=== PATIENT | female | born 2000 | race African-American/Black ===

== ENCOUNTER 2019-01-06 09:04 | Inpatient (IN) ==
[2019-01-06 10:42] LABS: URINE SOURCE VOIDED
[2019-01-06 10:58] LABS: BILIRUBIN URINE NEGATIVE (NEGATIVE); BLOOD URINE LARGE (NEGATIVE); CLARITY CLEAR (CLEAR); COLOR YELLOW; GLUCOSE URINE NEGATIVE (NEGATIVE); KETONE URINE NEGATIVE (NEGATIVE); LEUKOCYTES URINE NEGATIVE (NEGATIVE); NITRITE URINE NEGATIVE (NEGATIVE); PROTEIN URINE NEGATIVE (NEGATIVE); SP GRAVITY URINE 1.015; UROBILINOGEN URINE 0.2 EU/dL (0.2-1.0)
[2019-01-06 11:20] LABS: UR AMPHETAMINES MT NONE DETECTED (NONE DETECT); UR BARBITUATES MT NONE DETECTED (NONE DETECT); UR BENZODIAZ MT NONE DETECTED (NONE DETECT); UR CANNABIS MEDTOX NONE DETECTED (NONE DETECT); UR COCAINE MT NONE DETECTED (NONE DETECT); UR METHADONE MEDTOX NONE DETECTED (NONE DETECT); UR OPIATES MT NONE DETECTED (NONE DETECT); UR OXYCODONE MEDTOX NONE DETECTED (NONE DETECT); UR PCP MEDTOX NONE DETECTED (NONE DETECT)
[2019-01-06] MEDS ORDERED: PEPCID PO ONE (17:28)
[2019-01-06] MEDS ORDERED: PEPCID PO PRN (17:28)
[2019-01-06] MEDS ORDERED: TYLENOL PO PRN (17:28)
[2019-01-06] MEDS ORDERED: ZOFRAN IV PRN (17:28)
[2019-01-06] MEDS ORDERED: KEFZOL 1 GM/D5W 1 GM/50 ML IVPB IV PRN (17:28)
[2019-01-06] MEDS ORDERED: PEPCID IV PRN (17:28)
[2019-01-06] MEDS ORDERED: REGLAN PO ONE (17:28)
[2019-01-06] MEDS ORDERED: PITOCIN 10 UNITS/NS 1,000 ML IV SCH (17:30)
[2019-01-06] MEDS ORDERED: SODIUM CHLORIDE 0.9% INJ SCH (17:30)
[2019-01-06 18:23] LABS: BASO# 0.02 X1000 (0.0-0.2); BASO% 0.2 % (0.0-0.8); EOS% 0.9 % (0.0-10.0); HEMATOCRIT 40.1 % (37.0-47.0); HEMOGLOBIN 13.4 g/dL (12.0-16.0); IMM GRAN# 0.03 X1000 (0.0-0.04); IMM GRAN% 0.3 % (0.0-0.5); LYMPH# 1.96 X1000 (1.2-3.4); MCH 31.5 PG (27-31); MCHC 33.4 g/dL (33-37); MCV 94.4 FL (81-99); MONO# 0.74 X1000 (0.11-0.59); MONO% 6.4 % (1.7-9.3); MPV 11.3 FL (7.4-10.4); NEUT# 8.69 X1000 (1.4-6.5); NEUT% 75.2 % (42.2-75.2); PLT 245 X1000 (130-400); RBC 4.25 XMIL (4.2-5.4); RDW 12.7 % (11.5-14.5); WBC 11.54 X1000 (4.8-10.8)
[2019-01-06 18:41] LABS: AGAP 14; ALB/GLOB RATIO 1.2; ALBUMIN 3.8 g/dL (3.5-5.0); ALKALINE PHOSPHATASE 204 U/L (32-104); BUN 5 mg/dL (8-22); CALCIUM 9.8 mg/dL (8.8-10.2); CHLORIDE 100 mmol/L (98-107); COSMO 270; CREATININE 0.5 mg/dL (0.5-0.9); ESTIMATED GFR > 60; GLUCOSE 85 mg/dL (70-104); GOT 19 U/L (10-30); GPT 11 U/L (10-36); SODIUM 137 mmol/L (136-145); TCO2 23 mmol/L (25-35); TOTAL BILIRUBIN 0.41 mg/dL (0.20-1.00); TOTAL PROTEIN 7.1 g/dL (6.3-8.3); URIC ACID 3.6 mg/dL (2.4-5.7)
[2019-01-06 18:46] LABS: RPR NON-REACTIVE (NONREACTIVE)
[2019-01-06 18:47] LABS: RUBELLA SCREEN NON IMMUNE (IMMUNE)
[2019-01-06] MEDS: LR 1,000 ML IV SCH ×2 (18:52→22:22)
[2019-01-06] MEDS: STADOL IV PRN ×2 (18:56→21:20)
[2019-01-06] MEDS ORDERED: PITOCIN 30 UNITS/NS 30 UNIT/500 ML IV.SOLN IV SCH (20:00)
[2019-01-06] MEDS ORDERED: NAROPIN 0.2% INJ ONE (20:30)
[2019-01-06] MEDS ORDERED: NAROPIN 0.2% ONE (20:45)
[2019-01-06] MEDS ORDERED: FENTANYL-BUPIV-NS 2 MCG-0.1% 250 ML EPIDURAL SCH (21:00)
[2019-01-06 21:04] LABS: PROTEIN CREAT RATIO 0.2; UR PROT RANDOM 20.4 mg/dL
--- NOTE | 2019-01-06 22:54 | HISTORY AND PHYSICAL ---
CHIEF COMPLAINT: Very early prodromal labor, gestational hypertension. HISTORY OF PRESENT ILLNESS: The patient is a 18-year-old G1, P0 female with EDC of 01/07/2019, confirmed with ultrasound, making her 39 weeks and 6 days gestation. She is from [place], and had start of her care here in [place] at 27 weeks and 2 days gestation. She presented to labor and delivery on 01/06/2019 at around 8:50 a.m., stating that she had contractions on and off since the day prior. She states that morning at 7 a.m. her contractions had become regular at about 5- minute intervals. She reported good movement. No leakage of fluid and had minimal spotting with wiping. heart tones were in the 140s, reactive and reassuring, and on tocometer kourtney approximately every 3 minutes with arrival. Upon check at first arrival roughly at 9 a.m., she was found to be 1, 80% and - 2. First blood pressure was 152/73, but this was taken during a contraction and with discomfort. She had no PIH symptoms. No headache. No nausea or vomiting.No right upper quadrant pain. No vision problems. The blood pressure during her monitoring was in the 110s to 130s over 70s to 80s. On recheck at 1:40 p.m., she was found to be 2, 80%, -2 and still posterior. Discussed with the patient and her mother minimal change and early labor in a primipara. The patient reported her contractions were still strong but spaced out to the 3 to 7-minute range. The patient and her mother were concerned regarding the possibility of labor and discussed options, including going home as minimal change and coming back when her contractions got stronger, or staying through another check. They decided to stay through another check. The patient's mother had left after the second check to go take care of things at the house. Next check performed at 3:51 p.m. She was found to be 2.5 at that time, 80% effaced, -2 station with now the cervix midposition instead of posterior. Still slow prodromal early labor in a primipara. With third check the patient had said that she was just going to go ahead and go home so she could eat; however, when looking at blood pressures from approximately the 3:00 to 3:30 p.m. range on, all pressures had become elevated at 140/95, 147/87, 145/89, 149/91, 149/91, 151/94, 153/87, 154/94, 154/98, 168/88 and 142/84. Considering the elevation of her blood pressures that was persistent starting, again, at approximately 3 p.m. to 3:30 p.m. on, I discussed with the patient due to this would recommend augmenting her early labor due to gestational HTN. No protein on UA. She still had no headache, no vision problems, no nausea or vomiting, and no right upper quadrant pain. On exam, there was no edema. Reflexes were 2+ and there was no clonus. The patient's mother returned to the hospital and discussed that even though very early slow labor, decision was to keep the patient and augment with some Pitocin, due to the blood pressure elevation that developed during patient's monitoring. These were directly visualized by nurse, as well as, multiple cuff and position adjustments to see if it was artifact. These were visualized to be accurate. I discussed with the patient and her mother regarding risks and benefits of augmentation, as well as, risks of gestational hypertension. On review of her prenatals, even though late onset of care, blood pressures overall were good; however, on last visit 01/03/[address] Fuentes, blood pressure recorded on her was 148/85. That was at 39 weeks and 3 days gestation. PAST MEDICAL HISTORY: History of chlamydia in 2016 that was treated in [place]. Of note, GC/chlamydia testing 11/18/2018 was found to be negative. Otherwise past medical history unremarkable. OBSTETRIC HISTORY: G1, P0. Menarche at 12. SOCIAL HISTORY: Father of baby is in [place] at present, but they are still together. She denies tobacco use, denies alcohol use and denies illicit drug use. PAST SURGICAL HISTORY: None. MEDICATIONS: vitamin. ALLERGIES: No known allergies. FAMILY HISTORY: Mother with hypertension and maternal grandmother with hypertension. PHYSICAL EXAMINATION: CARDIOVASCULAR: Regular rate and rhythm. LUNGS: Clear to auscultation bilaterally. ABDOMEN: Bowel sounds present. Soft, nondistended, nontender. No rebound or guarding. Uterus gravid and nontender. Mild to moderate contractions palpated when having. PELVIS: Please see HPI above. Slow progression from 1, 80% and -2 to 2.5, 80% and -2 while in triage over 3 checks. Cervix also went from posterior to slightly midposition and was soft in nature. The is cephalic. EXTREMITIES: No edema. Patellar and Achilles reflexes 2+ bilaterally. There is no clonus. LABORATORY DATA: lab work: O positive, GBS negative. RPR nonreactive. Hepatitis B surface antigen negative. Hepatitis C antibody negative. HIV negative. One- hour Glucola at 107 and GC/chlamydia negative for . There is no rubella available in the chart; therefore, was ordered with admit as well as a repeat RPR being ordered. CBC revealed white count of 11.54, hemoglobin and hematocrit of 13.4 and 40.1, respectively, and platelets of 245,000. Sodium level 137, potassium 4.0, BUN 5 and creatinine 0.5, glucose of 85, uric acid 3.6, AST of 19, ALT of 11, calcium level of 9.8. RPR nonreactive on admit, and rubella was nonimmune. ASSESSMENT: A 18-year-old 1, para 0 with very early onset early prodromal labor and gestational hypertension at 39 weeks 6 days gestation. PLAN: 1. Discussed with the patient and mother admitting and augmentation with Pitocin. Risks and benefits of this were discussed. The patient stated understanding and wished to proceed. I discussed with the patient augmentation but that with gestational hypertension, risks exist for need for magnesium sulfate, as blood pressures can remain or become more elevated. Risks and benefits of magnesium sulfate use were also discussed if needed. The patient states understanding. I did discuss at admit as well regarding other possible measures possible during labor. She stated that she would accept blood products if needed. Also discussed small risk for need for section as she is those risks do exist, but the expectation is for vaginal delivery. Patient states understanding. 2. GBS status negative. No need for GBS prophylaxis. 3. Discussed with patient pain management including use of relaxation techniques/breathing, IV pain medications, and epidural. Discussed choices are up to her regarding her pain management during labor. 4. Expectant management, expected vaginal delivery. 5. Rubella NON-immune status - for vaccination prior to discharge. cc: MD YOSVANY Thurman
[2019-01-07] MEDS ORDERED: XYLOCAINE-MPF 1% INJ ONE (01:48)
[2019-01-07] MEDS: PITOCIN 30 UNITS/NS 30 UNIT/500 ML IV.SOLN IV SCH ×2 (04:30→07:08)
[2019-01-07] MEDS: PERI MEDS (DERMOPLAST/NUPERCAINAL/TUCKS) MISC PRN (05:00)
[2019-01-07] MEDS ORDERED: AMBIEN PO PRN (05:55)
[2019-01-07] MEDS ORDERED: BENADRYL IV PRN (05:55)
[2019-01-07] MEDS ORDERED: M-M-R II VACCINE SUBQ ONE (05:55)
[2019-01-07] MEDS ORDERED: XYLOCAINE-MPF 1% INJ PRN (05:55)
[2019-01-07] MEDS ORDERED: BENADRYL PO PRN (05:55)
[2019-01-07] MEDS ORDERED: HYDROXYZINE IM PRN (05:55)
[2019-01-07] MEDS ORDERED: PITOCIN IM PRN (05:55)
[2019-01-07] MEDS ORDERED: BOOSTRIX VACCINE IM ONE (05:55)
[2019-01-07] MEDS ORDERED: ATARAX PO PRN (05:55)
[2019-01-07] MEDS ORDERED: MINERAL OIL PO PRN (05:55)
[2019-01-07] MEDS ORDERED: CYTOTEC PO PRN (05:55)
[2019-01-07] MEDS ORDERED: NORCO-5 PO PRN (05:58)
[2019-01-07] MEDS ORDERED: NORCO-10 PO PRN (05:58)
[2019-01-07] MEDS ORDERED: PITOCIN 20 UNITS/NS 20 UNITS/1,000 ML IV.SOLN IV SCH (06:00)
--- NOTE | 2019-01-07 06:35 | OB/GYN PROGRESS NOTE ---
Progress Note OB - . OB Progress Note: Vital Signs - 24 hr 01/06/19 08:52 01/06/19 10:38 01/06/19 19:30 Temperature 98.2 F 97.9 F 97.1 F L Pulse Rate 78 98 H 63 Respiratory Rate 18 18 18 Blood Pressure 142/91 132/78 136/82 O2 Sat by Pulse Oximetry 98 100 96 01/07/19 00:00 Temperature 96.9 F L Pulse Rate 84 Respiratory Rate 18 Blood Pressure 137/80 O2 Sat by Pulse Oximetry 100 Laboratory Results - last 24 hr 01/06/19 01/06/19 01/06/19 09:30 09:30 09:30 WBC RBC Hgb Hct MCV MCH MCHC RDW Std Deviation Plt Count MPV Immature Gran % (Auto) Neut % (Auto) Lymph % (Auto) Saline % (Auto) Eos % (Auto) Baso % (Auto) Immature Gran # (Auto) Neut # (Auto) Lymph # (Auto) Saline # (Auto) Eos # (Auto) Baso # (Auto) Sodium Potassium Chloride Carbon Dioxide Anion Gap BUN Creatinine Estimated GFR/1.73 m2 BUN/Creatinine Ratio Glucose Calculated Osmolality Uric Acid Calcium Total Bilirubin AST ALT Alkaline Phosphatase Total Protein Albumin Globulin Albumin/Globulin Ratio Urine Source VOIDED Urine Color YELLOW Urine Clarity CLEAR Urine pH 7.0 Ur Specific [place] 1.015 Urine Protein NEGATIVE Urine Ketones NEGATIVE Urine Blood LARGE A Urine Nitrite NEGATIVE Urine Bilirubin NEGATIVE Urine Urobilinogen 0.2 Urine WBC NEGATIVE Ur Random Creatinine 125.0 H U Random Total Protein 20.4 Protein/Creatinin Ratio 0.2 Urine Glucose NEGATIVE Urine Opiates Screen NONE DETECTED Ur Oxycodone Screen NONE DETECTED Urine Methadone Screen NONE DETECTED Ur Barbiturates Screen NONE DETECTED Ur Phencyclidine Scrn NONE DETECTED Ur Amphetamines Screen NONE DETECTED U Benzodiazepines Scrn NONE DETECTED Urine Cocaine Screen NONE DETECTED U Cannabinoids Screen NONE DETECTED RPR Rubella Immunity Screen Blood Type Antibody Screen 01/06/19 01/06/19 01/06/19 18:00 18:00 18:00 WBC 11.54 H RBC 4.25 Hgb 13.4 Hct 40.1 MCV 94.4 MCH 31.5 H MCHC 33.4 RDW Std Deviation 12.7 Plt Count 245 MPV 11.3 H Immature Gran % (Auto) 0.3 Neut % (Auto) 75.2 Lymph % (Auto) 17.0 L Saline % (Auto) 6.4 Eos % (Auto) 0.9 Baso % (Auto) 0.2 Immature Gran # (Auto) 0.03 Neut # (Auto) 8.69 H Lymph # (Auto) 1.96 Saline # (Auto) 0.74 H Eos # (Auto) 0.10 Baso # (Auto) 0.02 Sodium 137 Potassium 4.0 Chloride 100 Carbon Dioxide 23 L Anion Gap 14 BUN 5 L Creatinine 0.5 Estimated GFR/1.73 m2 > 60 BUN/Creatinine Ratio 10 Glucose 85 Calculated Osmolality 270 Uric Acid 3.6 Calcium 9.8 Total Bilirubin 0.41 AST 19 ALT 11 Alkaline Phosphatase 204 H Total Protein 7.1 Albumin 3.8 Globulin 3.3 Albumin/Globulin Ratio 1.2 Urine Source Urine Color Urine Clarity Urine pH Ur Specific [place] Urine Protein Urine Ketones Urine Blood Urine Nitrite Urine Bilirubin Urine Urobilinogen Urine WBC Ur Random Creatinine U Random Total Protein Protein/Creatinin Ratio Urine Glucose Urine Opiates Screen Ur Oxycodone Screen Urine Methadone Screen Ur Barbiturates Screen Ur Phencyclidine Scrn Ur Amphetamines Screen U Benzodiazepines Scrn Urine Cocaine Screen U Cannabinoids Screen RPR NON-REACTIVE Rubella Immunity Screen NON IMMUNE H Blood Type Antibody Screen 01/06/19 18:00 WBC RBC Hgb Hct MCV MCH MCHC RDW Std Deviation Plt Count MPV Immature Gran % (Auto) Neut % (Auto) Lymph % (Auto) Saline % (Auto) Eos % (Auto) Baso % (Auto) Immature Gran # (Auto) Neut # (Auto) Lymph # (Auto) Saline # (Auto) Eos # (Auto) Baso # (Auto) Sodium Potassium Chloride Carbon Dioxide Anion Gap BUN Creatinine Estimated GFR/1.73 m2 BUN/Creatinine Ratio Glucose Calculated Osmolality Uric Acid Calcium Total Bilirubin AST ALT Alkaline Phosphatase Total Protein Albumin Globulin Albumin/Globulin Ratio Urine Source Urine Color Urine Clarity Urine pH Ur Specific [place] Urine Protein Urine Ketones Urine Blood Urine Nitrite Urine Bilirubin Urine Urobilinogen Urine WBC Ur Random Creatinine U Random Total Protein Protein/Creatinin Ratio Urine Glucose Urine Opiates Screen Ur Oxycodone Screen Urine Methadone Screen Ur Barbiturates Screen Ur Phencyclidine Scrn Ur Amphetamines Screen U Benzodiazepines Scrn Urine Cocaine Screen U Cannabinoids Screen RPR Rubella Immunity Screen Blood Type O POSITIVE Antibody Screen NEGATIVE Pitocin started at 8pm for labor augmentation. Epidural at 9:30pm for pain management. BP's 120-130's/70's on epidural. Approximately 11:30PM BP's back up to the 140-150's/80-90's. Was 5cm at midnight check. SROM approximately 1am - clear fluid. Recheck by nursing at 1:30am and was found to be 9cm. Complete at 3 AM per nursing. Started pushing at 3:10 AM as was feeling pressure. 3:57 AM patient requested epidural to be turned back so she could feel more -- epidural was paused. through 3 sets of pushes and was starting to tear as bright red blood noted. Decision made to perform midline episiotomy and discussed risks and benefits with patient. "Do it." Once midline episiotomy cut at 4:23 AM in MARLIN position with the next push. CAN x 1 reduced. 1 min delay in cord clamping. Female "Rhodejah" was 7#2 and APGARS 8, 9. Placenta delivered at 4:30 AM spontaneously with active management 3rd stage. Uterus explored and no retained products of conception palpated. Firmed with massage. Placenta appears on the smaller size with superficial calcifications noted - to be sent to pathology. 2nd degree midline episiotomy repaired and incorporated in to "Y" repair as had vaginal tear bilaterally approximately 4-5 cm into vagina. Superficial tear epidermal only into superior aspect of small hemorrhoid at 12:00. Rectal exam - intact and no stitches in rectum. Patient comfortable with epidural and no local anesthesia needed. FULL DICATION #[id number]
[2019-01-07] MEDS: MOTRIN PO PRN ×2 (07:46→17:13)
--- NOTE | 2019-01-07 14:24 | OPERATIVE NOTE ---
PROCEDURE DATE: DELIVERY SUMMARY: Patient is a 18-year-old, G1, P0, at 39 weeks and 6 days gestation who was monitored on Labor and Delivery for cramping and contractions. She was in early prodromal labor but during her time in triage, monitoring her through 3 labor checks, her blood pressure had gone up. Due to blood pressure elevations I discussed with patient augmenting her labor with Pitocin. PIH labs were all negative. UA was negative for protein. PCR was 0.2. Her GBS status was negative. She had no PIH symptoms. There is no edema. Reflexes were 2+ bilaterally and no clonus. Pitocin augmentation was begun at 8 p.m., she did receive 2 doses of Stadol before she got an epidural at 9:30 p.m. she was comfortable with her epidural and her blood pressures during the epidural were in the 120s to 130s over 70s. However at approximately 11:25 p.m., her blood pressures again became elevated into the 140s to 150s over 80s to 90s. She was rechecked at midnight and found to be 5 cm dilated, underwent probable spontaneous rupture of membranes approximately 1 a.m. that were clear and on recheck by nursing staff at 1:30 a.m. she was found to be 9 cm. She slowly progressed through a lip, Pitocin made it to 14 milliunits per minute, and she made it to complete at 3 a.m. She began pushing at 3:10 a.m. as she was feeling pressure. At 3:57 a.m. patient requested her epidural to be turned back so she could feel more of her pushing effort. Her epidural was paused. She ended up through approximately 3 sets of pushes and was starting to tear as bright red blood was noted at the posterior introitus still with resistance from the perineum. Decision was made to perform midline episiotomy and I discussed with the patient risks and benefits and the patient stated understanding "do it." Once the midline episiotomy was cut there was a spontaneous vaginal delivery at 4:23 a.m. on the next push. was in the MARLIN position. There was a cord around the neck x 1 noted that was easily reduced. There was a 1 minute delay in cord clamping. Female infant "Juliocesar" was 7 pounds 2 ounces and Apgars of 8 and 9 at 1 and 5 minutes respectively. The placenta then delivered at 4:30 a.m. spontaneously. There was active management of 3rd stage of labor with gentle downward traction on the cord, uterine massage, and opening of the pit through the IV post delivery of placenta. The uterus was explored and there were no palpated retained products of conception noted. The uterus firmed up with massage. On visualization of the placenta it appeared on the smaller size, placental disk however appeared intact. There were small superficial calcifications noted and her placenta was sent to pathology. On visualization of the repair, second-degree repair of the midline episiotomy superficially in the epidermis it did tear into the superior aspect of a small hemorrhoid at the 12 o'clock position. The anus and rectum however intact. For visualization, it necessitated a right angle retractor as patient had bilateral vaginal lacerations that were approximately 4 to 5 cm into the vagina. This Y repair was performed with 3-0 Vicryl suture starting at the apex of each bilateral vaginal laceration proximal and brought toward the introitus. Next 3-0 Vicryl suture was utilized to start the repair of the actual episiotomy repair which was normal in nature. The 3-0 Vicryl was started in the vaginal shelf brought through and a separate 2-0 Vicryl suture was used to place interrupted crown sutures in the perineal tissue. The 3-0 Vicryl was then brought down through the subcutaneous tissue, brought back up subcuticularly and buried behind the vaginal introitus. There was no active bleeding. Excellent reapproximation was noted. The patient did tolerate the repair well with comfort received from her epidural and no local anesthesia injection was needed. EBL estimated at 350-400 ml. NO hemorrhage. Second set of [employer] opened for visualization during repair. Both mother and baby were doing well postdelivery, uterus was firm, blood pressures were in the 140s to 150s over 80s just immediately postdelivery. We will continue to monitor blood pressures and discussed with patient and her mother if blood pressure become elevated post delivery I would recommend further treatment. Will monitor blood pressures closely. cc: MD YOSVANY Thurman
[2019-01-07] MEDS: EPIFOAM FOAM TOP PRN (17:39)
[2019-01-07] MEDS ORDERED: AYR NASAL SPRAY NAS PRN (19:35)
[2019-01-07] MEDS: PERICOLACE PO SCH (21:16)
[2019-01-07] MEDS: ROBITUSSIN PO PRN (21:16)
[2019-01-08 04:31] LABS: BASO# 0.02 X1000 (0.0-0.2); BASO% 0.2 % (0.0-0.8); EOS# 0.12 X1000 (0.0-0.7); HEMATOCRIT 29.7 % (37.0-47.0); HEMOGLOBIN 9.7 g/dL (12.0-16.0); IMM GRAN# 0.04 X1000 (0.0-0.04); IMM GRAN% 0.3 % (0.0-0.5); LYMPH# 2.65 X1000 (1.2-3.4); LYMPH% 22.3 % (20.5-51.1); MCH 31.4 PG (27-31); MCHC 32.7 g/dL (33-37); MCV 96.1 FL (81-99); MONO# 1.07 X1000 (0.11-0.59); MPV 10.8 FL (7.4-10.4); NEUT# 7.96 X1000 (1.4-6.5); NEUT% 67.2 % (42.2-75.2); PLT 208 X1000 (130-400); RBC 3.09 XMIL (4.2-5.4); RDW 12.7 % (11.5-14.5); WBC 11.86 X1000 (4.8-10.8)
--- NOTE | 2019-01-08 07:28 | OB/GYN PROGRESS NOTE ---
Progress Note OB - . OB Progress Note: Vital Signs - 24 hr 01/07/19 07:44 01/07/19 09:00 01/07/19 11:12 Temperature 97.8 F Pulse Rate 118 H 104 H 86 Respiratory Rate 20 18 20 Blood Pressure 142/87 142/77 138/81 O2 Sat by Pulse Oximetry 99 97 01/07/19 12:35 01/07/19 17:13 01/07/19 19:30 Temperature 98.4 F 98.1 F Pulse Rate 104 H 98 H 88 Respiratory Rate 20 20 16 Blood Pressure 142/77 146/85 132/76 O2 Sat by Pulse Oximetry 97 100 99 01/07/19 23:50 01/08/19 04:30 Temperature 97.9 F 98.8 F Pulse Rate 86 102 H Respiratory Rate 18 16 Blood Pressure 139/81 126/69 O2 Sat by Pulse Oximetry 99 99 01/07/19 19:53 Influenza Screen - Final Nasopharyngeal Laboratory Results - last 24 hr 01/08/19 04:03 WBC 11.86 H RBC 3.09 L Hgb 9.7 L D Hct 29.7 L D MCV 96.1 MCH 31.4 H MCHC 32.7 L RDW Std Deviation 12.7 Plt Count 208 MPV 10.8 H Immature Gran % (Auto) 0.3 Neut % (Auto) 67.2 Lymph % (Auto) 22.3 [place] % (Auto) 9.0 Eos % (Auto) 1.0 Baso % (Auto) 0.2 Immature Gran # (Auto) 0.04 Neut # (Auto) 7.96 H Lymph # (Auto) 2.65 [place] # (Auto) 1.07 H Eos # (Auto) 0.12 Baso # (Auto) 0.02 PPD#1 No C/O CP or SOB. NO lightheadedness, dizziness, or headache. Ambulating and voiding without difficulty. Lochia minimal. Vaginal area "a little sore." Patient has chosen to breast and bottlefeed. States nipples a little sore after attempting this morning. Baby in nursery at present. Patient states "went in nursery about 4 o'clock." Now after 7 am. Per nursing, yesterday question of bonding issues as sending baby to nursery frequently. Patient young, and FOB in [place], and he's about to join the army there. Nursing put in social service consult last night to evaluate for any assistance needed. Patient herself today states she is doing fine. Has nasal stuffiness "always do" and asked for nasal spray. Denies allergies. No cough. NO F/C. Flu swab obtained last night and negative. Using plain robitussin and NS nasal spray. No RUQ pain, NO Nause or vomiting. No visual complaints. CV- RRR Lungs- CTA bilaterally Abdomen- soft, mild tympany, no R/G Non-tender. Uterus firm below umbilicus. Perineum- intact, well approximated and no erythema. Ext- no calf pain, trace edema bilaterally. ASSESSMENT: PPD #1 S/P - early labor augmented with pitocin at 39+6 weeks, Gestational Hypertension. PLAN: 1. H&H reviewed pre-delivery 13.4/40.1 and post delivery 24 hours 9.7 /29.7. No lightheadedness or dizziness and no difficulty ambulating. Lochia minimal and uterus firm. FeSO4 325mg po q day added. 2. BP's stable on review 130-140's/70-80's. NO PIH symptoms. 3. Continued encouraged. Discussed that nurses will help her with . 4. Increase ambulation. 5. Social service consult pending.
[2019-01-08] MEDS: MOTRIN PO PRN ×2 (08:08→20:23)
[2019-01-08] MEDS: FERROUS SULFATE PO SCH (08:08)
[2019-01-08] MEDS: EPIFOAM FOAM TOP PRN (20:22)
[2019-01-08] MEDS: PERICOLACE PO SCH (20:22)
[2019-01-08] MEDS: PERI MEDS (DERMOPLAST/NUPERCAINAL/TUCKS) MISC PRN (20:22)
[2019-01-09] MEDS ORDERED: FLU VACCINE IM ONE (08:15)
[2019-01-09] MEDS: FERROUS SULFATE PO SCH (08:56)
[2019-01-09 10:07] VITALS: BP 137/85
[2019-01-09] MEDS: MOTRIN PO PRN (11:47)
[2019-01-09] MEDS: ROBITUSSIN PO PRN (11:54)
--- NOTE | 2019-01-09 23:59 | DISCHARGE SUMMARY ---
ADMISSION DATE: 01/06/2019 DISCHARGE DATE: 01/09/2019 ADMISSION DIAGNOSIS: At 39 and 6/7 weeks with early labor. FINAL DIAGNOSIS: At 39 and 6/7 weeks with early labor with vaginal delivery of a female , 7 pounds 2 ounces with Apgars of 8 and 9 at 0423 on 01/07/2019. PROCEDURES: Spontaneous vaginal delivery. BRIEF HISTORY: The patient 18-year-old white female, G1, P0 at 39 and 6/7 weeks. The patient is from [place] and began her care at 27 weeks in [place]. Patient had a history of Chlamydia that was treated and during her course she was negative. PAST MEDICAL HISTORY: Unremarkable. PAST OB HISTORY: G1, P0, menarche at age 12. SOCIAL HISTORY: Denies tobacco use, alcohol use. SURGICAL HISTORY: None. MEDICATIONS: vitamins. ALLERGIES: No known drug allergies. FAMILY HISTORY: Significant for hypertension. PHYSICAL EXAM: Cardiovascular: Regular rate and rhythm. Lungs: Clear to auscultation. Abdomen: Bowel sounds present. Uterus was gravid, nontender. Pelvic: The patient had a slow progression to 2.5 cm, 80% effaced, -2 station and made cervical change with regular uterine contractions. Extremities: No edema. DTRs 2+ bilaterally. LABS: The patient's blood type was noted to be O positive. Group B strep culture was negative. RPR nonreactive. Hepatitis surface antigen negative. HIV negative. Hepatitis C antibody negative. ASSESSMENT/PLAN: A 18-year-old black female, G1, P0 at 39 and 6/7 weeks in early labor. Patient is to be admitted for early labor. HOSPITAL COURSE: The patient progressed in labor and had a spontaneous vaginal delivery of a female infant, 7 pounds 2 ounces with Apgars of 8 and 9 at 0430 on 01/07/2019. Her course was unremarkable. Her hemoglobin did drop from 13.4 to 9.7, hematocrit dropped from 40.1 to hematocrit 29.7 and platelet count was noted to be normal. The patient's vital signs were normal as well and she was advanced on ambulation and she reports to breast and bottle-feed. On day #2 felt she could be discharged home pending a Processing Operator consult. DISCHARGE INSTRUCTIONS: Patient instructed on pelvic rest for 6 weeks, lifting precautions for 6 weeks. Patient is given instructions to follow up in 6 weeks and be considering different types of control and will discuss at that time. The patient given a prescription for [place] 5, Colace 100 mg, Motrin 800 mg and iron sulfate 325 mg upon discharge. cc: MD Jeannette Garcia III, MD
== END 2019-01-09 13:10 | disposition home or self-care (01) | DRG 806 ==
LOC: OPLD 09:04 → EDSTATUS 09:04 → LD 09:09 → MERGE 17:23 → LD 17:23
PROVIDERS: ADMIT Obstetrics & Gynecology; ATTEND Obstetrics & Gynecology